=== PATIENT | female | born 1950 | race Caucasian/White ===

== ENCOUNTER → 2017-05-14 | Outpatient (CLI) | payer OTHER ==
[~2017-05-14] MED LIST: ANTI-DIARRHEAL2 M1 PO; B COMPLEX1 CA1 PO; CALTRATE 600+D PO; ENBREL50 MG/ML SUBQ; FISH OIL 1,0001 CAP PO; FLAGYL PO; GINGER500 MG PO; IBUPROFEN400 MG PO; K-DUR20 ME1 DOB; LIBRIUM25 M1 DOB; LOMOTIL WHITE2.5 M1 DOB; LORTAB 7.5-5001 TAB PO; LUTEIN20 MG PO; METHOTREXATE2.5 MG PO; MOTRIN600 MG; MULTIVITAMIN W-1 TAB PO; MULTIVITAMIN1 UDCAP PO; NATURAL VITA100 UNIT PO; NEPHROCAPS CAPSU1 MG PO; NEURONTIN PO; NORVASC PO; NORVASC10 MG PO; ONDANSETRON4 MG/TAB DOB; OXYCONTIN PO; OYSTER CALCIUM500 MG PO; PAXIL CR PO; PAXIL40 MG PO; TRAZODONE PO; VITAMIN D 4001 UDTAB PO; WELLBUTRIN PO; ZOFRAN PO; [UNRECOGNIZED DRUG - OTHER] PO
--- NOTE | ~2017-05-14 | MY30 ---
[facility] A Service of [facility] RADIOLOGY TEXT RESULTS PATIENT: CHERI BENJAMIN LOCATION: [facility] : 46 UNIT #: [id number] AGE: [address]: David Pak MD SEX: F ORDER DR: [id number] [address] [address] [id number] O MR#: [id number] Acc #: [id number] NAME: CHERI BENJAMIN : 1950 SEX: F STUDY DATE/TIME: 05/14/2017 14:59 UNIT: [facility] ROOM: STUDY DESCRIPTION: MY SCREEN UMESH BILAT DIGITAL Attending Physician: David Pak M.D. Referring Physician: David Pak M.D. Ordering Physician: David Pak M.D. Primary Care Physician: David Pak M.D. MEDICAL IMAGING REPORT This report is preliminary unless electronic signature is present. EXAM Bilateral digital screening mammogram with CAD DATE: 05/14/2017 HISTORY 66-year-old female with family history of breast cancer in her mother. History of breast reduction surgery. No current complaints. COMPARISON Bilateral screening mammogram 01/10/2016, 08/10/2014, 06/02/2010 FINDINGS CC and MLO views were obtained of each breast utilizing digital technique and reviewed with an FDA-approved CAD device. Scattered fibroglandular densities are present bilaterally. A coarsely calcified fibroadenoma within the posterior medial right breast is unchanged. No new or developing nodules are identified. No architectural distortion is seen. No abnormal skin thickening or nipple retraction. Left chest wall pacemaker generator and right chest wall maryam catheter densities are incidentally noted. IMPRESSION Routine bilateral screening mammogram is recommended in 1 year. Patients over the age of 40 are entered into a reminder system with target due date for the next mammogram. A result letter will also be sent to the patient. BIRADS: 2 Benign finding [facility] A Service of [facility] RADIOLOGY TEXT RESULTS PATIENT: CHERI BENJAMIN LOCATION: [facility] : 46 UNIT #: [id number] AGE: [address]: David Pak MD SEX: F ORDER DR: Dictated by... Mireille Vidal M.D. THIS IS AN ELECTRONICALLY VERIFIED REPORT Mireille Vidal M.D. at 05/17/2017 8:49 AM MATTEO/aaron TD: 05/14/2017 22:31 JOB #: [id number] MEDICAL IMAGING REPORT Page 1 of 1
== END | disposition home or self-care (01) ==
LOC: SMAM 05-07 14:00
DX: Z12.31 Encounter for screening mammogram for malignant neoplasm of breast (principal); Z80.3 Family history of malignant neoplasm of breast; Z98.890 Other specified postprocedural states
CPT/HCPCS: G0202